=== PATIENT | male | born 1980 | race Caucasian/White ===

== ENCOUNTER 2018-09-29 08:10 | Emergency (ER) | payer SELFPAY ==
[~2018-09-29] VITALS: Ht 190.5 cm; Wt 90.0 kg
[~2018-09-29 08:10] MED LIST: ANTIBIOTIC; BACTRIM DS1 TAB OR; ELIMITE5 % EX; ULTRAM50 M1 OR; no home meds
[2018-09-29 08:47] LABS: IMMATURE GRANULOCYTES 0.4 % (0.0-5.0); MEAN CORPUSCULAR HGB 34.5 pG CALC (26.0-32.0); MEAN CORPUSCULAR HGB CONC 34.5 g/L CALC (32.0-36.0); NEUT# 2.89 thou/uL (1.82-7.42); RED BLOOD COUNT 5.04 mill/uL (4.70-6.10); RED CELL DISTRI WIDTH 13.4 % (11.5-15.5)
[2018-09-29 08:55] LABS: HEMATOCRIT 50.4 % (39.0-50.0); HEMOGLOBIN 17.4 g/dl (14.0-18.0)
[2018-09-29 08:57] LABS: ALBUMIN 5.3 g/dL (3.2-5.0); ALKALINE PHOSPHATASE 100 u/l (38-126); ANION GAP 19 (6-22 (CALC)); BILIRUBIN, TOTAL 1.6 mg/dL (0.0-1.4); BUN 19 mg/dL (9-20); BUN/CREATININE RATIO 18 (12-20 (CALC)); CARBON DIOXIDE 23 mmol/l (22-30); CHLORIDE 100 mmol/l (95-108); CREATININE 1.1 mg/dL (0.7-1.3); GFR > 60 ML/MIN (>=60 (CALC)); GFR FOR AFR.AMER. > 60 ML/MIN (>=60 (CALC)); POTASSIUM 4.7 mmol/l (3.5-5.1); SODIUM 137 mmol/l (137-146); TOTAL PROTEIN 8.7 g/dL (6.3-8.2)
[2018-09-29 08:59] LABS: SGOT/AST 73 u/l (17-59)
[2018-09-29 09:38] LABS: TSH, 3RD GENERATION 2.14 uIU/mL (0.47 - 4.68)
[2018-09-29 10:58] LABS: URINE BLOOD DIPSTICK NEGATIVE (NEGATIVE); URINE GLUCOSE - DIPSTICK NEGATIVE (NEGATIVE); URINE KETONE 15 mg/dL (NEGATIVE); URINE LEUK ESTERASE NEGATIVE (NEGATIVE); URINE NITRITE - DIPSTICK NEGATIVE (Negative); URINE PROTEIN - DIPSTICK NEGATIVE (NEG-TRACE); URINE SPECIFIC GRAVITY >=1.030
[2018-09-29 10:59] LABS: URINE BILIRUBIN - DIPSTICK NEGATIVE (NEGATIVE); URINE COLOR DK. YELLOW
[2018-09-29 11:01] LABS: COCAINE NEGATIVE (NEGATIVE)
[2018-09-29 11:02] LABS: BARBITURATES NEGATIVE (NEGATIVE); METHADONE NEGATIVE (NEGATIVE); OXCYCODONE POSITIVE (NEGATIVE); TETRAHYDROCANNABIONOL POSITIVE (NEGATIVE); TRICYLIC ANTIDEPRESSANTS POSITIVE (NEGATIVE)
[2018-09-29 11:30] LABS: ETHYL ALCOHOL 0 mg/dl (0-30)
[2018-09-29 13:42] VITALS: BP 132/91
== END 2018-09-29 13:47 | disposition home or self-care (01) | DRG 948 ==
LOC: ED 08:10
PROVIDERS: Emergency Medicine
DX: R53.1 Weakness (principal); R78.4 Finding of other drugs of addictive potential in blood; F17.200 Nicotine dependence, unspecified, uncomplicated
CPT/HCPCS: Q9967

== ENCOUNTER 2019-01-11 14:03 | Emergency (ER) | payer SELFPAY ==
[~2019-01-11] VITALS: Ht 190.5 cm; Wt 97.2 kg
[2019-01-11] MEDS ORDERED: ULTRAM50 M1 PO (15:49)
[2019-01-11] MEDS ORDERED: FLEXERIL PO (15:49)
[2019-01-11 15:55] VITALS: BP 144/95
== END 2019-01-11 15:55 | disposition home or self-care (01) | DRG 552 ==
LOC: ED 14:03
DX: S33.5XXA Sprain of ligaments of lumbar spine, initial encounter (principal); F17.210 Nicotine dependence, cigarettes, uncomplicated; X50.3XXA Overexertion from repetitive movements, initial encounter; Y93.89 Activity, other specified; Y92.89 Other specified places as the place of occurrence of the external cause; Y99.0 Civilian activity done for income or pay

== ENCOUNTER 2019-03-16 10:46 | Emergency (ER) | payer SELFPAY ==
[~2019-03-16] VITALS: Ht 190.5 cm; Wt 86.0 kg
[~2019-03-16 10:46] MED LIST changes: +FLEXERIL PO; +ULTRAM50 M1 PO
[2019-03-16] MEDS ORDERED: ELIMITE52 TOP ×2 (12:13→21:06)
[2019-03-16 12:15] VITALS: BP 116/66
== END 2019-03-16 12:15 | disposition home or self-care (01) | DRG 607 ==
LOC: ED 10:46
DX: B86 Scabies (principal); B88.0 Other acariasis; F17.200 Nicotine dependence, unspecified, uncomplicated

== ENCOUNTER 2019-03-16 20:47 | Emergency (ER) | payer SELFPAY ==
[~2019-03-16] VITALS: Ht 190.5 cm; Wt 104.5 kg
[~2019-03-16 20:47] MED LIST changes: +ELIMITE52 TOP
[2019-03-16 21:00] VITALS: BP 146/85
[2019-03-16] MEDS ORDERED: ELIMITE52 TOP (21:06)
== END 2019-03-16 21:00 | disposition home or self-care (01) | DRG 607 ==
LOC: ED 20:47
DX: B86 Scabies (principal); F42.4 Excoriation (skin-picking) disorder; F17.210 Nicotine dependence, cigarettes, uncomplicated; T49.0X6A Underdosing of local antifungal, anti-infective and anti-inflammatory drugs, initial encounter; Z91.120 Patient's intentional underdosing of medication regimen due to financial hardship

== ENCOUNTER 2019-03-23 14:10 | Emergency (ER) | payer SELFPAY ==
[~2019-03-23] VITALS: Ht 190.5 cm; Wt 84.0 kg
[2019-03-23 14:27] VITALS: BP 126/83
== END 2019-03-23 14:27 | disposition left against medical advice (07) | DRG 607 ==
LOC: ED 14:10
DX: R21 Rash and other nonspecific skin eruption (principal); F17.210 Nicotine dependence, cigarettes, uncomplicated; Z91.19 Patient's noncompliance with other medical treatment and regimen

== ENCOUNTER 2021-06-09 08:39 | Emergency (ER) | payer SELFPAY ==
[~2021-06-09] VITALS: Ht 190.5 cm; Wt 85.0 kg
[2021-06-09 09:37] LABS: HEMATOCRIT 47.4 % (39.0-50.0); HEMOGLOBIN 15.9 g/dl (14.0-18.0); MEAN CELL VOLUME 97.3 fL CALC (80.0-100.0); MEAN CORPUSCULAR HGB 32.6 pG CALC (26.0-32.0); MEAN CORPUSCULAR HGB CONC 33.5 g/dL CAL (32.0-36.0); NEUT# 3.26 thou/uL (1.82-7.42); RED BLOOD COUNT 4.87 mill/uL (4.70-6.10); RED CELL DISTRI WIDTH 12.9 % (11.5-15.5)
[2021-06-09 10:16] LABS: ALKALINE PHOSPHATASE 76 u/l (38-126); BUN 9 mg/dL (9-20); BUN/CREATININE RATIO 9 (12-20 (CALC)); CHLORIDE 103 mmol/l (95-108); GFR > 60 ML/MIN (>=60 (CALC)); GFR FOR AFR.AMER. > 60 ML/MIN (>=60 (CALC)); POTASSIUM 4.4 mmol/l (3.5-5.1); SGOT/AST 29 u/l (17-59); SODIUM 138 mmol/l (137-146); TOTAL PROTEIN 7.6 g/dL (6.3-8.2)
[2021-06-09 10:17] LABS: ALBUMIN 4.2 g/dL (3.2-5.0); ANION GAP 8 (6-22 (CALC)); BILIRUBIN, TOTAL 0.5 mg/dL (0.0-1.4); CARBON DIOXIDE 31 mmol/l (22-30)
[2021-06-09] MEDS ORDERED: MECLIZINE25 MG PO (10:48)
[2021-06-09 10:53] VITALS: BP 131/74
== END 2021-06-09 11:01 | disposition home or self-care (01) | DRG 149 ==
LOC: ED 08:39
PROVIDERS: Family Medicine
DX: R42 Dizziness and giddiness (principal); M79.671 Pain in right foot; F17.200 Nicotine dependence, unspecified, uncomplicated

== ENCOUNTER 2021-08-23 07:30 | Emergency (ER) | payer SELFPAY ==
[~2021-08-23] VITALS: Ht 190.5 cm; Wt 113.6 kg
[~2021-08-23 07:30] MED LIST changes: +MECLIZINE25 MG PO
[2021-08-23 07:39] VITALS: BP 122/83
[2021-08-23] MEDS ORDERED: FLEXERIL5 M1 PO (07:52)
[2021-08-23 08:01] VITALS: BP 132/94
[2021-08-23 08:02] VITALS: BP 132/94
== END 2021-08-23 08:04 | disposition home or self-care (01) | DRG 563 ==
LOC: ED 07:30
DX: S46.912A Strain of unspecified muscle, fascia and tendon at shoulder and upper arm level, left arm, initial encounter (principal); F17.200 Nicotine dependence, unspecified, uncomplicated; X50.0XXA Overexertion from strenuous movement or load, initial encounter; Y93.89 Activity, other specified; Y92.009 Unspecified place in unspecified non-institutional (private) residence as the place of occurrence of the external cause

== ENCOUNTER 2021-11-08 13:29 | Emergency (ER) | payer SELFPAY ==
[2021-11-08] VITALS (12 sets, daily range): BP systolic 94–144; BP diastolic 73–100
[~2021-11-08] VITALS: Ht 190.5 cm; Wt 104.5 kg
[~2021-11-08 13:29] MED LIST changes: +FLEXERIL5 M1 PO
[2021-11-08 14:00] LABS: HEMATOCRIT 45.6 % (39.0-50.0); HEMOGLOBIN 15.6 g/dl (14.0-18.0); IMMATURE GRANULOCYTES 0.1 % (0.0-5.0); MEAN CELL VOLUME 95.4 fL CALC (80.0-100.0); MEAN CORPUSCULAR HGB 32.6 pG CALC (26.0-32.0); MEAN CORPUSCULAR HGB CONC 34.2 g/dL CAL (32.0-36.0); NEUT# 3.52 thou/uL (1.82-7.42); RED BLOOD COUNT 4.78 mill/uL (4.70-6.10); RED CELL DISTRI WIDTH 13.5 % (11.5-15.5)
[2021-11-08 14:19] LABS: ALBUMIN 4.6 g/dL (3.2-5.0); ALKALINE PHOSPHATASE 91 u/l (38-126); ANION GAP 15 (6-22 (CALC)); BILIRUBIN, TOTAL 0.7 mg/dL (0.0-1.4); BUN 23 mg/dL (9-20); BUN/CREATININE RATIO 14 (12-20 (CALC)); CHLORIDE 103 mmol/l (95-108); CPK 330 u/l (52-200); CREATININE 1.6 mg/dL (0.7-1.3); GFR FOR AFR.AMER. 58 ML/MIN (>=60 (CALC)); GFR OTHER RACES 48 ML/MIN (>=60 (CALC)); POTASSIUM 4.4 mmol/l (3.5-5.1); SGOT/AST 27 u/l (17-59); SODIUM 138 mmol/l (137-146)
[2021-11-08 14:23] LABS: CARBON DIOXIDE 24 mmol/l (22-30)
[2021-11-08 16:23] LABS: URINE BLOOD DIPSTICK NEGATIVE (NEGATIVE); URINE GLUCOSE - DIPSTICK NEGATIVE (NEGATIVE); URINE KETONE NEGATIVE (NEGATIVE); URINE LEUK ESTERASE NEGATIVE (NEGATIVE); URINE PH 5.5 (4.5-8.0); URINE PROTEIN - DIPSTICK TRACE mg/dL (NEG-TRACE); URINE SPECIFIC GRAVITY >=1.030; URINE UROBILINOGEN - DIPSTICK 0.2 E.U./dL (0.2)
[2021-11-08 16:28] LABS: URINE BILIRUBIN - DIPSTICK SMALL (NEGATIVE); URINE COLOR AMBER; URINE NITRITE - DIPSTICK NEGATIVE (Negative)
== END 2021-11-08 16:18 | disposition home or self-care (01) | DRG 641 ==
LOC: ED 13:29
PROVIDERS: Family Medicine
DX: E86.0 Dehydration (principal); N28.9 Disorder of kidney and ureter, unspecified; F17.210 Nicotine dependence, cigarettes, uncomplicated

== ENCOUNTER 2021-11-27 01:50 | Emergency (ER) | payer SELFPAY ==
[~2021-11-27] VITALS: Ht 190.5 cm; Wt 102.0 kg
[2021-11-27 02:09] VITALS: BP 126/101
[2021-11-27 02:11] VITALS: BP 138/95
[2021-11-27] MEDS ORDERED: GENTAMICIN SULF5 ML OD (02:52)
[2021-11-27 03:00] VITALS: BP 138/90
== END 2021-11-27 03:05 | disposition home or self-care (01) | DRG 125 ==
LOC: ED 01:50
DX: S05.01XA Injury of conjunctiva and corneal abrasion without foreign body, right eye, initial encounter (principal); F17.200 Nicotine dependence, unspecified, uncomplicated; X58.XXXA Exposure to other specified factors, initial encounter

== ENCOUNTER 2021-11-27 15:49 | Emergency (ER) | payer SELFPAY ==
[2021-11-27] VITALS (20 sets, daily range): BP systolic 129–186; BP diastolic 85–118
[~2021-11-27] VITALS: Ht 190.5 cm; Wt 100.0 kg
[~2021-11-27 15:49] MED LIST changes: +GENTAMICIN SULF5 ML OD
[2021-11-27 16:39] LABS: HEMATOCRIT 43.5 % (39.0-50.0); HEMOGLOBIN 14.6 g/dl (14.0-18.0); IMMATURE GRANULOCYTES 0.1 % (0.0-5.0); MEAN CELL VOLUME 96.9 fL CALC (80.0-100.0); MEAN CORPUSCULAR HGB 32.5 pG CALC (26.0-32.0); MEAN CORPUSCULAR HGB CONC 33.6 g/dL CAL (32.0-36.0); NEUT# 3.97 thou/uL (1.82-7.42); RED BLOOD COUNT 4.49 mill/uL (4.70-6.10); RED CELL DISTRI WIDTH 13.2 % (11.5-15.5)
[2021-11-27 16:53] LABS: ALBUMIN 4.3 g/dL (3.2-5.0); ALKALINE PHOSPHATASE 79 u/l (38-126); ANION GAP 10 (6-22 (CALC)); BILIRUBIN, TOTAL 0.5 mg/dL (0.0-1.4); BUN 14 mg/dL (9-20); BUN/CREATININE RATIO 15 (12-20 (CALC)); CARBON DIOXIDE 25 mmol/l (22-30); CHLORIDE 105 mmol/l (95-108); ETHYL ALCOHOL 0 mg/dl (0-30); GFR FOR AFR.AMER. > 60 ML/MIN (>=60 (CALC)); GFR OTHER RACES > 60 ML/MIN (>=60 (CALC)); POTASSIUM 3.4 mmol/l (3.5-5.1); SGOT/AST 23 u/l (17-59); SODIUM 137 mmol/l (137-146); TOTAL PROTEIN 7.5 g/dL (6.3-8.2)
[2021-11-27 18:30] LABS: URINE BILIRUBIN - DIPSTICK NEGATIVE (NEGATIVE); URINE BLOOD DIPSTICK NEGATIVE (NEGATIVE); URINE COLOR YELLOW; URINE GLUCOSE - DIPSTICK NEGATIVE (NEGATIVE); URINE KETONE NEGATIVE (NEGATIVE); URINE LEUK ESTERASE NEGATIVE (NEGATIVE); URINE PH 5.5 (4.5-8.0); URINE PROTEIN - DIPSTICK NEGATIVE (NEG-TRACE); URINE SPECIFIC GRAVITY >=1.030; URINE UROBILINOGEN - DIPSTICK 0.2 E.U./dL (0.2)
[2021-11-27 18:32] LABS: URINE NITRITE - DIPSTICK NEGATIVE (Negative)
[2021-11-28] VITALS (19 sets, daily range): BP systolic 119–170; BP diastolic 52–104
== END 2021-11-28 08:42 | DRG 881 ==
LOC: ED 15:49
PROVIDERS: Emergency Medicine; Family Medicine
DX: F32.A Depression, unspecified (principal); S05.91XA Unspecified injury of right eye and orbit, initial encounter; F19.10 Other psychoactive substance abuse, uncomplicated; I10 Essential (primary) hypertension; F17.210 Nicotine dependence, cigarettes, uncomplicated; Z63.4 Disappearance and death of family member; Z20.822 Contact with and (suspected) exposure to COVID-19; F17.200 Nicotine dependence, unspecified, uncomplicated; X58.XXXA Exposure to other specified factors, initial encounter

== ENCOUNTER 2021-12-25 11:13 | Emergency (ER) | payer BC ==
[~2021-12-25] VITALS: Ht 190.5 cm; Wt 102.7 kg
[2021-12-25] MEDS ORDERED: OLANZAPINE5 MG PO (11:36)
[2021-12-25] MEDS ORDERED: CEPHALEXIN500 M1 PO (11:42)
[2021-12-25] MEDS ORDERED: MECLIZINE25 MG PO (11:42)
[2021-12-25] MEDS ORDERED: BACTRIM DS1 TAB PO (11:42)
[2021-12-25] MEDS ORDERED: PERMETHRIN5 % EX (11:46)
[2021-12-25 12:25] VITALS: BP 143/89
== END 2021-12-25 12:26 | disposition home or self-care (01) | DRG 607 ==
LOC: ED 11:13
DX: L73.9 Follicular disorder, unspecified (principal); B86 Scabies; F41.9 Anxiety disorder, unspecified; F17.210 Nicotine dependence, cigarettes, uncomplicated

== ENCOUNTER 2022-01-28 18:05 | Emergency (ER) | payer BC ==
[~2022-01-28] VITALS: Ht 190.5 cm; Wt 102.0 kg
[~2022-01-28 18:05] MED LIST changes: +BACTRIM DS1 TAB PO; +CEPHALEXIN500 M1 PO; +OLANZAPINE5 MG PO; +PERMETHRIN5 % EX
[2022-01-28 18:51] LABS: HEMATOCRIT 38.2 % (39.0-50.0); HEMOGLOBIN 13.3 g/dl (14.0-18.0); MEAN CELL VOLUME 92.7 fL CALC (80.0-100.0); MEAN CORPUSCULAR HGB 32.3 pG CALC (26.0-32.0); MEAN CORPUSCULAR HGB CONC 34.8 g/dL CAL (32.0-36.0); NEUT# 4.13 thou/uL (1.82-7.42); RED BLOOD COUNT 4.12 mill/uL (4.70-6.10); RED CELL DISTRI WIDTH 12.8 % (11.5-15.5)
[2022-01-28 19:05] LABS: ALBUMIN 4.6 g/dL (3.2-5.0); ALKALINE PHOSPHATASE 89 u/l (38-126); ANION GAP 13 (6-22 (CALC)); BILIRUBIN, TOTAL 0.7 mg/dL (0.0-1.4); BUN 17 mg/dL (9-20); BUN/CREATININE RATIO 18 (12-20 (CALC)); CARBON DIOXIDE 24 mmol/l (22-30); CHLORIDE 105 mmol/l (95-108); ETHYL ALCOHOL 0 mg/dl (0-30); GFR FOR AFR.AMER. > 60 ML/MIN (>=60 (CALC)); GFR OTHER RACES > 60 ML/MIN (>=60 (CALC)); POTASSIUM 3.9 mmol/l (3.5-5.1); SGOT/AST 24 u/l (17-59); SODIUM 138 mmol/l (137-146); TOTAL PROTEIN 7.4 g/dL (6.3-8.2)
[2022-01-28 21:06] LABS: URINE BILIRUBIN - DIPSTICK NEGATIVE (NEGATIVE); URINE BLOOD DIPSTICK NEGATIVE (NEGATIVE); URINE COLOR YELLOW; URINE GLUCOSE - DIPSTICK NEGATIVE (NEGATIVE); URINE KETONE TRACE mg/dL (NEGATIVE); URINE LEUK ESTERASE NEGATIVE (NEGATIVE); URINE PH 5.5 (4.5-8.0); URINE PROTEIN - DIPSTICK NEGATIVE (NEG-TRACE); URINE SPECIFIC GRAVITY >=1.030
[2022-01-28 21:10] LABS: URINE NITRITE - DIPSTICK NEGATIVE (Negative)
[2022-01-28 22:15] VITALS: BP 146/96
== END 2022-01-28 22:30 | disposition designated cancer center or children's hospital (05) | DRG 880 ==
LOC: ED 18:05
PROVIDERS: Family Medicine
DX: R44.0 Auditory hallucinations (principal); F15.10 Other stimulant abuse, uncomplicated; F32.A Depression, unspecified; S60.512A Abrasion of left hand, initial encounter; S60.511A Abrasion of right hand, initial encounter; F41.9 Anxiety disorder, unspecified; F17.200 Nicotine dependence, unspecified, uncomplicated; X58.XXXA Exposure to other specified factors, initial encounter; Z20.822 Contact with and (suspected) exposure to COVID-19

== ENCOUNTER 2022-08-11 18:30 | Emergency (ER) | payer BC ==
[~2022-08-11] VITALS: Ht 190.5 cm; Wt 108.9 kg
[2022-08-11] VITALS (10 sets, daily range): BP systolic 112–133; BP diastolic 83–96
[2022-08-11 19:27] LABS: BASO% 0.5 % (0-3); EOS% 1.9 % (0-8); IMMATURE GRANULOCYTES 0.1 % (0.0-5.0); LYMPH% 27.4 % (15-41); MEAN CELL VOLUME 95.7 fL CALC (80.0-100.0); MEAN CORPUSCULAR HGB CONC 33.4 g/dL CAL (32.0-36.0); MONO% 11.3 % (2-13); NEUT# 5.5 thou/uL (1.82-7.42); NEUT% 58.8 % (42-76); RED BLOOD COUNT 4.69 mill/uL (4.70-6.10); RED CELL DISTRI WIDTH 13.3 % (11.5-15.5)
[2022-08-11 19:29] LABS: HEMATOCRIT 44.9 % (39.0-50.0)
[2022-08-11 19:43] LABS: ALBUMIN 4.6 g/dL (3.2-5.0); ALKALINE PHOSPHATASE 77 u/l (38-126); ANION GAP 15 (6-22 (CALC)); BILIRUBIN, TOTAL 0.6 mg/dL (0.2-1.3); BUN 11 mg/dL (9-20); BUN/CREATININE RATIO 10 (12-20 (CALC)); CARBON DIOXIDE 21 mmol/l (22-30); CHLORIDE 105 mmol/l (95-108); CREATININE 1.1 mg/dL (0.7-1.3); GFR FOR AFR.AMER. > 60 ML/MIN (>=60 (CALC)); GFR OTHER RACES > 60 ML/MIN (>=60 (CALC)); POTASSIUM 3.2 mmol/l (3.5-5.1); SGOT/AST 23 u/l (17-59); SODIUM 138 mmol/l (137-146); TOTAL PROTEIN 7.9 g/dL (6.3-8.2)
[2022-08-11] MEDS ORDERED: KEFLEX500 MG PO (21:30)
== END 2022-08-11 22:03 | disposition home or self-care (01) | DRG 153 ==
LOC: ED 18:30
PROVIDERS: Emergency Medicine
DX: J06.9 Acute upper respiratory infection, unspecified (principal); Z20.822 Contact with and (suspected) exposure to COVID-19; F17.210 Nicotine dependence, cigarettes, uncomplicated

== ENCOUNTER 2022-09-04 10:55 | Emergency (ER) | payer BC ==
[~2022-09-04] VITALS: Ht 190.5 cm; Wt 94.0 kg
[~2022-09-04 10:55] MED LIST changes: +KEFLEX500 MG PO
[2022-09-04 11:14] VITALS: BP 104/64
== END 2022-09-04 11:36 | disposition left against medical advice (07) | DRG 951 ==
LOC: ED 10:55 → LWOBS 11:25
DX: Z53.21 Procedure and treatment not carried out due to patient leaving prior to being seen by health care provider (principal)

== ENCOUNTER 2022-09-05 09:52 | Emergency (ER) | payer BC ==
[~2022-09-05] VITALS: Ht 190.5 cm; Wt 104.3 kg
[2022-09-05 10:01] VITALS: BP 134/98
[2022-09-05 10:36] LABS: BASO% 1.1 % (0-3); EOS% 3.6 % (0-8); HEMATOCRIT 47.1 % (39.0-50.0); HEMOGLOBIN 15.6 g/dl (14.0-18.0); IMMATURE GRANULOCYTES 0.2 % (0.0-5.0); LYMPH% 22.7 % (15-41); MEAN CELL VOLUME 97.1 fL CALC (80.0-100.0); MEAN CORPUSCULAR HGB 32.2 pG CALC (26.0-32.0); MEAN CORPUSCULAR HGB CONC 33.1 g/dL CAL (32.0-36.0); MONO% 8.7 % (2-13); NEUT# 4.09 thou/uL (1.82-7.42); NEUT% 63.7 % (42-76); RED BLOOD COUNT 4.85 mill/uL (4.70-6.10)
[2022-09-05 10:51] LABS: ALBUMIN 4.9 g/dL (3.2-5.0); ALKALINE PHOSPHATASE 86 u/l (38-126); BUN 10 mg/dL (9-20); BUN/CREATININE RATIO 8 (12-20 (CALC)); CHLORIDE 101 mmol/l (95-108); CREATININE 1.3 mg/dL (0.7-1.3); GFR FOR AFR.AMER. > 60 ML/MIN (>=60 (CALC)); GFR OTHER RACES > 60 ML/MIN (>=60 (CALC)); SGOT/AST 26 u/l (17-59); SODIUM 136 mmol/l (137-146); TOTAL PROTEIN 7.8 g/dL (6.3-8.2)
[2022-09-05 10:54] LABS: ANION GAP 14 (6-22 (CALC)); BILIRUBIN, TOTAL 1.2 mg/dL (0.2-1.3); CARBON DIOXIDE 26 mmol/l (22-30); POTASSIUM 5.2 mmol/l (3.5-5.1)
[2022-09-05 11:00] VITALS: BP 128/95
[2022-09-05 11:07] LABS: ETHYL ALCOHOL 0 mg/dl (0-30)
[2022-09-05 12:01] VITALS: BP 128/79
[2022-09-05 14:00] VITALS: BP 145/97
[2022-09-05 17:29] VITALS: BP 145/97
== END 2022-09-05 17:15 | disposition other institution (70) | DRG 880 ==
LOC: ED 09:52
PROVIDERS: Family Medicine
DX: R45.851 Suicidal ideations (principal); F41.8 Other specified anxiety disorders; F17.210 Nicotine dependence, cigarettes, uncomplicated

== ENCOUNTER 2024-01-03 08:06 | Emergency (ER) | payer OTHER ==
[~2024-01-03] VITALS: Ht 190.5 cm; Wt 108.9 kg
[2024-01-03 08:38] VITALS: BP 132/81
[2024-01-03] MEDS ORDERED: BACTRIM DS1 TAB PO (08:47)
[2024-01-03 08:52] VITALS: BP 126/89
[2024-01-03 08:58] VITALS: BP 132/81
== END 2024-01-03 08:55 | disposition home or self-care (01) | DRG 603 ==
LOC: ED 08:06
DX: L05.01 Pilonidal cyst with abscess (principal); F41.9 Anxiety disorder, unspecified; F17.200 Nicotine dependence, unspecified, uncomplicated